=== PATIENT | female | born 1940 | race Caucasian/White ===

== ENCOUNTER 2023-01-17 23:51 | Emergency (ER) | payer MEDICARE, SELFPAY ==
[2023-01-17 23:58] VITALS: BP 159/74; PULSE 74; RESP 18; TEMP 35.9; O2SAT 96
--- NOTE | 2023-01-18 00:06 | ED_ITS ---
HPI - General Adult General Chief complaint: Weakness Stated complaint: weakness in both legs Time Seen by Provider: 01/18/23 00:02 History of Present Illness HPI narrative: pt complaint of weakness in both legs. started last weekend, getting worse everyday, today , unable to walk. 82-year-old woman presenting to the emergency department complaint of weakness in both legs. This is been going on for a week now and worsening. She feels like it started at the lower legs in his work as way up. When I asked further though it sounds like there is also weakness in her arms. Not isolated to larger muscle groups necessarily. Lives with a grandson who has today supplied her with a walker the bring here today. Normally very active only with some pulmonary problems. She denies increasing shortness of breath or lightheadedness. No chest pain. No fevers. Was evaluated I believe back in November this year diagnosed with the urinary tract infection in the setting of some altered mental status. 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 Around this time early November was also increased in losartan to 50 mg daily from 25. She does take a daily low-dose aspirin. Has thyroid supplementation. I note some bandages recent bleeding at the left elbow. Apparently had a longstanding scab there that she just scraped and some sheets today. they do note longstanding swelling of bilateral lower extremities feet ankles. Does use compression stockings at times. They are worried that with this combination of swelling and weakness that she might have blood clots. Is not reporting any pain. Reports gaining a few lbs of weight over couple of months. Has noticed rather dark urine intermittently recently. Last 2 days actually have been clear. They report that they came to this facility under the understanding that this was an [facility]. Drove 1 hour from [place]. Now living there. Had been living in [place] and seeing Dr. Ling at the local [facility] before moving. Past medical surgical history/ problem list includes asthma Chronic airway obstruction Tobacco use disorder though apparently has been maybe a couple decades since was smoking Hypertension Colonic polyps - Benign Peripheral vascular disease vitamin-D deficiency Osteoporosis Subclavian arterial stenosis with asymmetric blood pressure readings -- pressures abnormally low in the left arm and is to have checks done on the right arm. Sensorineural hearing loss bilaterally Medications include albuterol inhaler aspirin atorvastatin budesonide- formoterol Calcium plus D Fluticasone nasal spray levothyroxine Losartan Metoprolol for succinate 100 mg daily Pantoprazole Zolpidem Related Data Allergies Allergy/AdvReac Type Severity Reaction Status Date / Time No Known Drug Allergies Allergy Verified 01/18/23 00:02 Review of Systems Status of ROS: Reports: 10 or more systems reviewed and unremarkable except as noted in History and below Exam Narrative: Exam Narrative: Pleasant. Blunt in communication style. She is in no distress. A little hard of hearing. Breathing easily. Lungs with some crepitus mid left and lower lung but also present somewhat in the right lower lung. She notes how this is just phlegm she is clearing. Heart with regular rate and rhythm no murmur appreciated. Oropharynx is moist. Extensive dental work looks somewhat flatter. Neck is supple. skin with age-related thinning in intradermal bleeding / bruising. She does have a couple bandages Applied to the left elbow. Moving her left elbow without difficulty. do not appreciate swelling there. There is some dried blood in the area. She appears to have good stre ngth in all extremities. Well perfused. Easily raise his arms overhead and has excellent tone equal fleet manager strength. Good strength in lower extremities to including hip girdle flexion extension of the knee dorsiflexion plantar flexion at the ankle. Little tremulous with flexion at the knee pulling heals to buttock but seems still strong. Lower extremities with 1+ pitting edema from mid lower leg down bilaterally. Nontender. Abdomen is protuberant soft and nontender. Const: Vital Signs, click to edit/add: Vital Signs - 24 hr 01/17/23 23:58 01/18/23 03:37 Temperature 96.7 F L Pulse Rate [Left P ulse Oximeter] 74 68 Respiratory Rate 18 14 Blood Pressure [Ri ght Upper Arm] 159/74 H Pulse Oximetry 96 Oxygen Delivery Me thod Room Air Documenting provider has reviewed patient's vital signs: yes Course Vital Signs Vital signs: Initial Vital Signs Temperature 96.7 F L 01/17/23 23:58 Temperature Source Temporal Artery Scan 01/17/23 23:58 Pulse Rate 74 01/17/23 23:58 Pulse Rhythm Regular 01/17/23 23:58 Respiratory Rate 18 01/17/23 23:58 Blood Pressure 159/74 H 01/17/23 23:58 Blood Pressure Mean 102 01/17/23 23:58 Blood Pressure Position Semi-Fowlers 01/17/23 23:58 Pulse Oximetry 96 01/17/23 23:58 Oxygen Delivery Method Room Air 01/17/23 23:58 Vital Signs Temperature 96.7 F L 01/17/23 23:58 Pulse Rate 74 01/17/23 23:58 Respiratory Rate 18 01/17/23 23:58 Blood Pressure 159/74 H 01/17/23 23:58 Pulse Oximetry 96 01/17/23 23:58 Oxygen Delivery Method Room Air 01/17/23 23:58 Temperature 96.7 F L 01/17/23 23:58 Pulse Rate 68 01/18/23 03:37 Respiratory Rate 14 01/18/23 03:37 Blood Pressure 159/74 H 01/17/23 23:58 Pulse Oximetry 96 01/17/23 23:58 Oxygen Delivery Method Room Air 01/17/23 23:58 Medical Decision Making MDM Narrative Medical decision making narrative: is seems that these weakness is not limited to the lower extremity. Would look for infection both in urine possibly chest given pulmonary history and I am hearing on exam though I think less likely pneumonia. We will evaluate for cardiac etiology. Does not appear to be related to a cerebral vascular issue. I would wonder also above metabolic. Will check chemistries. Will need to evaluate renal function I discussed. Denies family history of neurological disorders such as MS, myasthenia gravis or GB. Possibly endocrine. Will check TSH. I do not know when this is less been done. Chemistries may lead toward other endocrine investigation. Also denies family history of Parkinson's or other dementia. Numerous labs are off. Make special note of creatinine of 7.2. Able to find records showing a creatinine of 1, 2 months ago. Transaminases are rather elevated. TSH is more elevated than I can tell that it has been on review of records in the last few years. At 19.9 rather elevated D-dimer and CRP. Chest x-ray reviewed by me looks to be WNL. Given L normal saline. Puzzling constellation of labs. I think abdominal imaging is warranted here. Also initiate normal saline hydration. Hepatorenal syndrome? Ms. Ram is quite clear that she does not intend to be hospitalized. Grandson is clearly upset and does not understand why labs here today show such abnormalities when was recently relatively normal. Initially is questioning workup at this facility. INDICATION: Abnormal liver and renal function tests TECHNIQUE: CT Abdomen and pelvis without i.v. contrast. Coronal and sagittal reformats were obtained. COMPARISON: None FINDINGS: Lower chest: Mild nodular infiltrates are present in the right lower lobe with peribronchial cuffing. There is a 5 mm nodule present in the posterior right lower lobe. Liver: There is a lobulated hypodense mass present in the left lobe of the liver and right anterior segment measuring 6.7 x 3 cm. Spleen: Unremarkable. Pancreas: Unremarkable. Gallbladder: Unremarkable. Kidney: There is a hypodense lesion in the upper pole of the left kidney measuring 1.7 cm that is incompletely assessed without intravenous contrast. Adrenal: Unremarkable. Bowel: Moderate amount of stool is present throughout the colon which may be due to chronic constipation. Severe gaseous distention of the sigmoid colon is noted. Previous appendectomy noted with no significant appendiceal stump identified. The appendix is not identified. Vascular: Severe diffuse atherosclerotic calcifications of the abdominal aorta and its tributaries are present. Lymph: Unremarkable. Peritoneum: Unremarkable. No pneumoperitoneum is seen. No significant ascites is noted. Pelvis: The patient is status post hysterectomy. There is a cystic lesion in the left ovary noted measuring 2.5 cm. Soft tissue: Unremarkable. Bone: Unremarkable for age. IMPRESSIONS: 1. Mild nodular infiltrates are present in the right lower lobe with peribronchial cuffing. This may be due to bronchiolitis. 2. There is a lobulated hypodense mass present in the left lobe of the liver and right anterior segment measuring 6.7 x 3 cm. Assessment with liver MRI is recommended. Dictated by Kleber Myles MD @ 01/18/2023 3:43:24 AM I did discuss these findings with Radiology. Concern certainly is of malignancy. I discussed these findings with patient and family. Do not have ability to do MRI tonight however ultrasound might be helpful. This might facilitate quicker progress outpatient. Ultimately after long discussion they decline to do this ultrasound preferring to pursue outpatient. Still prefers to leave the emergency department. My concern is for worsening renal function in particular. I am hopeful that the hydration that she did receive her might be helpful. They say that she does do an excellent job of maintaining hydration. I wonder if weakness is more due to being apparently hypothyroid than these other findings. This is more than I could manage from the ER and have recommended inpatient admission. See above. Recommending otherwise then close follow-up See patient discharge plan Medical Records Medical records reviewed: Yes I reviewed the patient's medical records Lab Data Lab results reviewed: Yes I reviewed the patient's lab results Labs: Lab Results 01/18/23 01/18/23 Range/Units 00:24 00:55 WBC 11.76 H (4.50-11.00) K/uL RBC 4.56 (4.00-5.20) m/uL Hgb 13.0 (12.0-16.0) gm/dL Hct 40.4 (33.0-51.0) % MCV 89 (80-100) fL MCH 29 (26-34) pg MCHC 32 (32-36) gm/dL RDW Coeff of Vitor 17.8 H (11.5-15.5) % Plt Count 255 (140-440) K/uL Neut % (Auto) 84.4 H (42.0-72.0) % Lymph % (Auto) 4.7 L (20-44) % [place] % (Auto) 9.4 (0.0-11.0) % Eos % (Auto) 0.0 (0.0-7.0) % Baso % (Auto) 0.1 (0.0-3.0) % Neut # (Auto) 9.90 H (1.7-7.0) K/uL Lymph # (Auto) 0.60 L (0.90-2.90) K/uL [place] # (Auto) 1.10 H (0.00-0.90) K/UL Eos # (Auto) 0.00 (0.00-0.50) K/uL Baso # (Auto) 0.00 (0.00-0.30) K/uL D-Dimer Quant (PE/DVT) 8.15 H (0.00-0.50) ug/ml Sodium 137 (135-149) mmol/L Potassium 3.7 (3.6-5.1) mmol/L Chloride 100 (96-114) mmol/L Carbon Dioxide 19 L (20-32) mmol/L BUN 91 H (7-30) mg/dL Creatinine 7.2 H (0.5-1.5) mg/dL Estimated GFR 5 ml/min Glucose 105 (60-115) mg/dL Calcium 8.7 (8.4-10.6) mg/dL Total Bilirubin 1.5 (0.1-1.5) mg/dL Direct Bilirubin 1.3 H (0.0-0.5) mg/dL AST 1695 H (12-35) U/L ALT 486 H (4-35) U/L Alkaline Phosphatase 702 H (40-150) U/L Troponin I 0.11 H* (0.01-0.04) ng/mL C-Reactive Protein 8.2 H (0.5-1.0) mg/dL NT-Pro-B Natriuret Pep 8570 pg/mL Total Protein 8.0 (6.0-8.3) g/dL Albumin 3.6 (3.3-5.0) g/dL TSH 19.900 H (0.270-4.20) uIU/mL Ethyl Alcohol < 0.01 L (0.01-0.03) % ECG Data Attestation: I personally reviewed and interpreted this ECG as follows: (Normal sinus. Prolongation QT. rate of 78. T-waves are unusual flattened) Discharge Plan Discharge Clinical Impression: Hypothyroid, Liver mass, Renal failure, Weakness Patient Disposition: Home w/ Parent or Adult Condition: Stable Additional Instructions: As you know I am not in agreement with you leaving the hospital at this time. I think it would be safer and more expedient for you to be hospitalized to further evaluate and treat you. Please take copies of these images to your follow-up appointments. You have copies of labs as well. I would try to recheck your blood on Thursday or Thursday and follow up with primary care at that time as well. Follow Up/Referrals: Moses Ling MD [Primary Care Provider] - Stand Alone Forms: [employer] Info Instructions
--- NOTE | 2023-01-18 00:24 | CRLHL7_ITS ---
For Patients: As a result of the Cures Act, medical imaging exams and procedure reports are released immediately into your electronic medical record. You may view this report before your referring provider. If you have questions, please contact your health care provider. INDICATION: Weakness TECHNIQUE: Chest radiograph 1 view COMPARISON: None FINDINGS: Mediastinum: The mediastinum is normal in appearance. The heart silhouette is normal in size and morphology. Lung: Both lungs are unremarkable in appearance. No sign of pleural effusion seen. No pneumothorax is identified. Bone and Soft tissue: Unremarkable for age. IMPRESSION: 1. No acute cardiopulmonary disease is seen. Dictated by: Kleber Myles MD @ 01/18/2023 01:14:51 (Electronically Signed)
[2023-01-18 01:11] LABS: Basophils Percent Auto 0.1 % (0.0-3.0); Hematocrit 40.4 % (33.0-51.0); Immature Granulocytes Pct Auto 1.4 %; Lymphocytes Percent Auto 4.7 % (20-44); Mean Corpuscular HGB Conc 32 gm/dL (32-36); Mean Corpuscular Hemoglobin 29 pg (26-34); Mean Corpuscular Volume 89 fL (80-100); Monocytes Percent Auto 9.4 % (0.0-11.0); Neutrophils Percent Auto 84.4 % (42.0-72.0); Platelet Count* 255 K/uL (140-440); RDW Coefficient of Variation % 17.8 % (11.5-15.5); Red Blood Count 4.56 m/uL (4.00-5.20); White Blood Count* 11.76 K/uL (4.50-11.00)
[2023-01-18 01:31] LABS: Albumin* 3.6 g/dL (3.3-5.0); Chloride* 100 mmol/L (96-114)
[2023-01-18 01:32] LABS: Potassium* 3.7 mmol/L (3.6-5.1); Sodium* 137 mmol/L (135-149)
[2023-01-18 01:34] LABS: Creatinine* 7.2 mg/dL (0.5-1.5); Estimated Glomerular Filt Rate 5 ml/min
[2023-01-18 01:35] LABS: Alanine Aminotransferase* 486 U/L (4-35); Alkaline Phosphatase* 702 U/L (40-150); Bilirubin Direct* 1.3 mg/dL (0.0-0.5); Bilirubin Total* 1.5 mg/dL (0.1-1.5); Blood Urea Nitrogen* 91 mg/dL (7-30); Calcium* 8.7 mg/dL (8.4-10.6); Carbon Dioxide* 19 mmol/L (20-32); Glucose* 105 mg/dL (60-115)
[2023-01-18 01:37] LABS: C Reactive Protein* 8.2 mg/dL (0.5-1.0)
[2023-01-18 01:47] LABS: D Dimer Quantitative* 8.15 ug/ml (0.00-0.50)
[2023-01-18 01:54] LABS: Ethanol* < 0.01 % (0.01-0.03); NT Pro B Type NatriureticPept* 8570 pg/mL
[2023-01-18 01:57] LABS: Troponin I* 0.11 ng/mL (0.01-0.04)
[2023-01-18 02:02] LABS: Aspartate Amino Transferase* 1695 U/L (12-35)
[2023-01-18] MEDS: 0.9 % SODIUM CHLORIDE 1000 ml 1,000 ML IV (02:29)
[2023-01-18 02:33] LABS: Slide Review Reflex No
--- NOTE | 2023-01-18 02:35 | CRLHL7_ITS ---
For Patients: As a result of the Century Cures Act, medical imaging exams and procedure reports are released immediately into your electronic medical record. You may view this report before your referring provider. If you have questions, please contact your health care provider. INDICATION: Abnormal liver and renal function tests TECHNIQUE: CT Abdomen and pelvis without i.v. contrast. Coronal and sagittal reformats were obtained. COMPARISON: None FINDINGS: Lower chest: Mild nodular infiltrates are present in the right lower lobe with peribronchial cuffing. There is a 5 mm nodule present in the posterior right lower lobe. Liver: There is a lobulated hypodense mass present in the left lobe of the liver and right anterior segment measuring 6.7 x 3 cm. Spleen: Unremarkable. Pancreas: Unremarkable. Gallbladder: Unremarkable. Kidney: There is a hypodense lesion in the upper pole of the left kidney measuring 1.7 cm that is incompletely assessed without intravenous contrast. Adrenal: Unremarkable. Bowel: Moderate amount of stool is present throughout the colon which may be due to chronic constipation. Severe gaseous distention of the sigmoid colon is noted. Previous appendectomy noted with no significant appendiceal stump identified. The appendix is not identified. Vascular: Severe diffuse atherosclerotic calcifications of the abdominal aorta and its tributaries are present. Lymph: Unremarkable. Peritoneum: Unremarkable. No pneumoperitoneum is seen. No significant ascites is noted. Pelvis: The patient is status post hysterectomy. There is a cystic lesion in the left ovary noted measuring 2.5 cm. Soft tissue: Unremarkable. Bone: Unremarkable for age. IMPRESSIONS: 1. Mild nodular infiltrates are present in the right lower lobe with peribronchial cuffing. This may be due to bronchiolitis. 2. There is a lobulated hypodense mass present in the left lobe of the liver and right anterior segment measuring 6.7 x 3 cm. Assessment with liver MRI is recommended. Dictated by Kleber Myles MD @ 01/18/2023 3:43:24 AM Please note that all CT scans at this facility use dose modulation, iterative reconstruction, and/or weight-based dosing when appropriate to reduce radiation dose to as low as reasonably achievable. Dictated by: Kleber Myles MD @ 01/18/2023 03:43:28 (Electronically Signed)
[2023-01-18 03:37] VITALS: PULSE 68; RESP 14
[2023-01-20 09:47] LABS: Magnesium* 2.4 mg/dL (1.5-2.6)
== END 2023-01-18 04:57 | disposition home or self-care (01) ==
PROVIDERS: Emergency Provider Family Medicine; PCP Family Medicine
DX: E03.9 Hypothyroidism, unspecified (principal); R16.0 Hepatomegaly, not elsewhere classified; N19 Unspecified kidney failure; R53.1 Weakness; Z53.29 Procedure and treatment not carried out because of patient's decision for other reasons
CPT/HCPCS: 36415; 71045; 74176; 80048; 80076; 81001; 82077; 83735; 83880; 84443; 84484; 85025; 85379; 86140; 93005; 96360; 99285; J7030